=== PATIENT | female | born 1995 | race African-American/Black ===

== ENCOUNTER 2019-02-11 02:04 | Emergency (ER) | payer SELFPAY ==
[~2019-02-11] VITALS: Ht 167.6 cm; Wt 54.4 kg
--- NOTE | 2019-02-11 02:46 | PHYS DOC ---
Past Medical History Additional Past Medical Histor: PT REPORTS HX OF PNEUMOTHORAX (HOLE IN LUNG) Past Surgical History: No Surgical History Alcohol Use: None Drug Use: Marijuana Adult General Chief Complaint Chief Complaint: CHEST PAIN HPI HPI Patient is a 23 year old Malag[place] female with reported history of pneumothorax who presents with chest wall pain while at work. 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 Chest wall pain reproduces with palpation and movement. Patient denies shortness of breath. No fever chills, cough. Denies leg pain or swelling. Symptoms are currently rated as mild. No other acute symptoms or complaints.[] Review of Systems Review of Systems Review symptoms as per history of present illness. All other review symptoms are negative. All other systems were reviewed and found to be within normal limits, except as documented in this note. Current Medications Current Medications Current Medications Medications (Trade) Dose Ordered Sig/Nanette Start Time Stop Time Status Last Admin Dose Admin Acetaminophen (Tylenol) 1,000 mg 1X ONCE 02/11/19 03:00 02/11/19 03:01 DC 02/11/19 03:26 1,000 MG Allergies Allergies Allergies Coded Allergies Type Severity Reaction Last Updated Verified No Known Drug Allergies 02/11/19 No Physical Exam Physical Exam Constitutional: Well developed, well nourished, no acute distress, non-toxic appearance. [] HENT: Normocephalic, atraumatic, bilateral external ears normal, oropharynx moist, no oral exudates, nose normal. [] Eyes: PERRLA, EOMI, conjunctiva normal, no discharge. [] Neck: Normal range of motion, no tenderness, supple, no stridor. [] Cardiovascular:Heart rate regular rhythm, no murmur [] Lungs & Thorax: Laboratory, breath sounds clear throughout, reproducible chest wall pain underneath left breast.[] Abdomen: Bowel sounds normal, soft, no tenderness. [] Extremities: Negative Homans signs. [] Neurologic: Alert and oriented X 3, normal motor function, normal sensory function, no focal deficits noted. [] Current Patient Data Vital Signs Vital Signs Date Time Temp Pulse Resp B/P (MAP) Pulse Ox O2 Delivery O2 Flow Rate FiO2 02/11/19 02:10 98.2 107 14 157/94 (115) 99 Room Air 98.2 EKG EKG [] Radiology/Procedures Radiology/Procedures [Chest x-ray: No acute cardiopulmonary disease on preliminary ED review.] Course & Med Decision Making Course & Med Decision Making Pertinent Labs and Imaging studies reviewed. (See chart for details) [Reproducible chest wall pain with symptoms consistent with costochondritis. EKG, ST-T wave changes. Chest x-ray unremarkable. Recommend supportive care. Courtesy work note provided] Brandyn Disclaimer Brandyn Disclaimer This electronic medical record was generated, in whole or in part, using a voice recognition dictation system. Departure Departure Impression: Primary Impression: Chest pain Additional Impression: Costochondritis Disposition: HOME, SELF-CARE Condition: Patient Instructions: Costochondritis, [id number] Additional Instructions: Please go home and rest. Avoid heavy lifting and strenuous physical activity. Take 600 mg of ibuprofen 3 times daily for chest wall pain. Follow-up with local PCP for reevaluation. Return to the ED if new or worsening symptoms Problem Qualifiers GALA SPRING DO Feb 11, 2019 02:46
[2019-02-11] MEDS ORDERED: ACETAMINOPHEN 500 MG TABLET PO ONE (03:00)
[2019-02-11 03:20] VITALS: BP 124/80
--- NOTE | 2019-02-11 05:14 | RAD ---
EXAM: CHEST ONE VIEW. HISTORY: Chest pain. COMPARISON: None. FINDINGS: A frontal view of the chest is obtained. There are no confluent infiltrates. There is no pneumothorax or pleural effusion. The heart is not enlarged. IMPRESSION: 1. No confluent infiltrates. Electronically signed by: Dhaval Trammell MD (02/11/2019 5:12 AM) [id number]
--- NOTE | 2019-02-11 07:00 | EKG ---
[facility] [address] [place] [id number] Test Date: 2019-02-11 Test Time: 02:14:44 Pat Name: NANCY LUISANA Department: Room: Gender: F Character Actress: : [id number] Requested By: GALA SPRING Order Number: [id number] Reading MD: Franck De Santiago MD Measurements Intervals [place] Rate: 104 P: 65 MT: 148 QRS: 15 QRSD: 68 T: 35 QT: 270 QTc: 360 Interpretive Statements SINUS TACHYCARDIA LAE Electronically Signed On 02-15-2019 9:52:50 CDT by Franck De Santiago MD
== END 2019-02-11 03:25 | disposition home or self-care (01) ==
LOC: ER 02:04
DX: M94.0 Chondrocostal junction syndrome [Tietze] (principal)
CPT/HCPCS: 71045; 93005; 99284